=== PATIENT | female | born 1970 | race Caucasian/White ===

== ENCOUNTER → 2016-10-26 | Outpatient (CLI) | payer OTHER | LOC: LAB 07:32 | DX: N39.0 Urinary tract infection, site not specified (principal) | CPT/HCPCS: 81001 ==

== ENCOUNTER 2021-01-12 11:47 | Emergency (ER) | payer OTHER ==
[~2021-01-12 11:47] MED LIST: MACROBID 100 M100 MG PO
[2021-01-12 12:30] LABS: HEMOGLOBIN 16.9 gm/dl (12.3-15.3); RED BLOOD COUNT 4.71 M/UL (4.00-5.10); WHITE BLOOD COUNT 10.4 K/UL (4.5-11.0)
[2021-01-12 13:04] LABS: BUN/CREATININE RATIO 13 (0-10)
== END 2021-01-12 21:58 | disposition home or self-care (01) ==
LOC: ER1 11:47
PROVIDERS: Physician Assistant
DX: R00.2 Palpitations (principal); R11.0 Nausea; R51.9 Headache, unspecified; J45.909 Unspecified asthma, uncomplicated; F17.200 Nicotine dependence, unspecified, uncomplicated; Z90.710 Acquired absence of both cervix and uterus; Z20.822 Contact with and (suspected) exposure to COVID-19
CPT/HCPCS: 70450; 71045; 80053; 81001; 82550; 82553; 83874; 84439; 84443; 84484; 85025; 85379; 93005; 99285; U0002

== ENCOUNTER 2021-05-04 11:51 | Emergency (ER) | payer OTHER ==
[2021-05-04] MEDS ORDERED: CEPHALEXIN500 M1 PO (13:16)
== END 2021-05-04 13:26 | disposition home or self-care (01) ==
LOC: ER1 11:51
DX: S91.111A Laceration without foreign body of right great toe without damage to nail, initial encounter (principal); Y93.G1 Activity, food preparation and clean up; Y92.009 Unspecified place in unspecified non-institutional (private) residence as the place of occurrence of the external cause
CPT/HCPCS: 12001; 73630; 96374; 99283; J1885

== ENCOUNTER 2022-02-16 12:48 | Emergency (ER) | payer OTHER ==
[~2022-02-16 12:48] MED LIST changes: +CEPHALEXIN500 M1 PO
== END 2022-02-16 15:53 | disposition home or self-care (01) ==
LOC: ER1 12:48
DX: S61.011A Laceration without foreign body of right thumb without damage to nail, initial encounter (principal); F17.210 Nicotine dependence, cigarettes, uncomplicated; Z88.1 Allergy status to other antibiotic agents; W26.8XXA Contact with other sharp object(s), not elsewhere classified, initial encounter; Y92.009 Unspecified place in unspecified non-institutional (private) residence as the place of occurrence of the external cause
CPT/HCPCS: 12001; 99282

== ENCOUNTER → 2022-03-05 | Outpatient (CLI) | payer OTHER | LOC: KOH-I 14:01 | DX: M25.561 Pain in right knee (principal); M25.562 Pain in left knee; M17.11 Unilateral primary osteoarthritis, right knee | CPT/HCPCS: 73502; 73562 ==